=== PATIENT | female | born 1955 | race Caucasian/White ===

== ENCOUNTER 2021-08-11 07:35 | Outpatient (CLI) | payer MEDICARE, BC | END 2021-08-11 23:59 | disposition home or self-care (01) | LOC: LAB 07:35 | PROVIDERS: ATTEND Orthopaedic Surgery | DX: Z01.812 Encounter for preprocedural laboratory examination (principal); Z20.822 Contact with and (suspected) exposure to COVID-19 ==

== ENCOUNTER 2021-10-19 07:23 | Outpatient (CLI) | payer MEDICARE, BC | END 2021-10-19 10:42 | disposition home or self-care (01) | LOC: LAB 07:23 | PROVIDERS: ATTEND Orthopaedic Surgery | DX: Z01.812 Encounter for preprocedural laboratory examination (principal); Z20.822 Contact with and (suspected) exposure to COVID-19 ==

== ENCOUNTER 2021-10-20 06:40 | Day surgery (SDC) | payer MEDICARE, BC ==
[2021-10-20] MEDS ORDERED: PROPOFOL 200 MG/20 ML BOTTLE IV ONE (06:41)
[2021-10-20] MEDS ORDERED: ONDANSETRON 4 MG/2 ML VIAL IV ONE (06:41)
[2021-10-20] MEDS ORDERED: DEXAMETHASONE SOD PHOSPHATE 4 MG INJ IV ONE (06:41)
[2021-10-20] MEDS ORDERED: KETOROLAC TROMETHAMINE 30 MG INJ IM ONE (06:41)
[2021-10-20] MEDS ORDERED: SEVOFLURANE 250 ML BOTTLE IH ONE (06:41)
[2021-10-20] MEDS ORDERED: METOCLOPRAMIDE HCL 10 MG/2 ML VIAL IV ONE (06:41)
[2021-10-20] MEDS ORDERED: LIDOCAINE-MPF 2% 5 ML VIAL IJ ONE (06:41)
[2021-10-20] MEDS ORDERED: CEFAZOLIN 1 G VIAL IM ONE (06:41)
[2021-10-20] MEDS ORDERED: MORPHINE SULFATE PF 10 MG/10 ML AMPUL IV ONE (07:05)
[2021-10-20] MEDS ORDERED: BUPIVACAINE/EPI PF 0.5% 10 ML VIAL ONE (07:05)
[2021-10-20] MEDS ORDERED: HYDROMORPHONE 2 MG/1 ML DISP.SYRIN ONE (07:50)
[2021-10-20] MEDS ORDERED: SEVOFLURANE 250 ML BOTTLE ONE (08:43)
[2021-10-20] MEDS ORDERED: HYDROCODONE/APAP 5-325MG TABLET ONE (10:42)
== END 2021-10-20 11:35 | disposition home or self-care (01) ==
LOC: DS 06:40
PROVIDERS: ATTEND Orthopaedic Surgery
DX: S83.271A Complex tear of lateral meniscus, current injury, right knee, initial encounter (principal); M94.211 Chondromalacia, right shoulder; M65.88 Other synovitis and tenosynovitis, other site; Z79.899 Other long term (current) drug therapy; Z98.890 Other specified postprocedural states; X58.XXXA Exposure to other specified factors, initial encounter; Y93.89 Activity, other specified; Y92.89 Other specified places as the place of occurrence of the external cause; Y99.8 Other external cause status
CPT/HCPCS: 20610; 29876; 29881; J0690; J1100; J1170; J1885; J2274; J2405; J2765; J3490 ×2; J7120 ×2; A4663